=== PATIENT | female | born 1970 | race Caucasian/White ===

== ENCOUNTER → 2018-10-04 | Outpatient (CLI) | payer OTHER ==
[~2018-10-04] VITALS: Ht 172.7 cm; Wt 88.5 kg
[~2018-10-04] MED LIST: BENZTROPINE MES1 MG PO; CLONAZEPAM 1 MG1 M1 PO; DEPAKOTE ER500 MG PO; FLONASE 0.05%50 MCG NASAL; HALOPERIDOL 2 MG2 M1 PO; IBUPROFEN200 M1 PO; LIORESAL 10 MG10 MG PO; NEURONTIN600 MG PO; OXYCODONE HCL10 MG PO; RESTORIL15 MG PO; SONATA5 M1 PO; SUPER B-50 COM1 EAC1 PO; TRAZODONE 150150 M1 PO; UNICOMPLEX M TA1 TA1 PO; VENTOLIN HFA 1818 GM INH; ZANAFLEX4 MG PO
--- NOTE | ~2018-10-04 | HPC ---
[facility] [address] [address] PAIN MANAGEMENT CONSULTATION Name: DUSTIN GUZMAN Room #: REG VICKY PaulieEdouard.#: [id number] Admission: 10/04/18 Attend Phys: Philip Johnson MD Discharge: Date of : 72 Report #: [id number] THIS REPORT FOR: //name// CC: FAM unknown SCAR Johnson DATE OF SERVICE: 10/04/2018 CHIEF COMPLAINT: Severe right neck pain with headaches and myofascial spasm. HISTORY OF PRESENT ILLNESS: The patient is a pleasant 47-year-old who is here today at the request of her primary care physician Dr. Baltazar for evaluation of neck pain. She has also seen in the past Dr. Forde for surgical consultation and Dr. Kar Reveles who performed one single cervical epidural injection at C6-C7. She has had now 3-1/2 years of pain and the pain has been progressively worsening. On a daily basis, her intensity of pain score is 7 and at times 10/10. She describes it as steady, burning, shooting, aching pain that radiates both into her neck, face, the back of her head and on occasion into her right arm. Pain is generally made worse by any lifting, raising up of her arms, pulling. Even going over bumps in the car makes the pain more severe. She has currently been treated by medications primarily and she is feeling cloudy on a combination of oxycodone, muscle relaxants and gabapentin. They help some, but she does not like the feeling of medications in combination with medication she takes for a longstanding history of bipolar disorder with PTSD. We will discuss medication shortly. The patient has a bipolar illness and follows with a clinical psychiatrist in [place], [place]. MEDICATIONS: Clonazepam 1 mg t.i.d.; divalproex sodium 500 mg daily; ibuprofen 200 mg taken q. 6 hours; trazodone 150 mg 2 tablets at bedtime; vitamin B complex; multivitamins; zaleplon 5 mg at bedtime as needed; albuterol; fluticasone; gabapentin 600 mg t.i.d.; oxycodone 10 mg 1 tablet t.i.d., maximum 90 tablets per month under opioid agreement with Dr. Baltazar; tizanidine 4 mg t.i.d., this is a new medication substituting for other muscle relaxants. She also has benztropine, which she takes rarely and haloperidol, which she takes rarely. ALLERGIES: LAMICTAL. PAST MEDICAL HISTORY: Remarkable for PTSD and bipolar disorder. I do not go [address] [address] PAIN MANAGEMENT CONSULTATION Name: DUSTIN GUZMAN Room #: REG VICKY Lopez#: [id number] Admission: 10/04/18 Attend Phys: Philip Johnson MD Discharge: Date of : 72 Report #: [id number] into the stressful situation with her as she has a counselor. 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 She had two previous jaw surgeries in high school. SOCIAL HISTORY: She has been on social security disability for about 10 years due to chronic pain and bipolar illness. She continues to smoke less than half a pack a day, but this is down for her and she continues to try and taper. She has smoked for 26 years. She drinks 3-4 beers per day and finds that this is helpful for her pain, she self-medicates with this. She sleeps 10 hours a day. Impact pain score is highest for mood 7/10 and also for enjoyment of life 5/10. REVIEW OF SYSTEMS: Completed by the patient. The multipoint review is noted to describe weakness in the neck and history of night sweats due to menopause. Other than her psychiatric illness, she claims nothing else on the review. PHYSICAL EXAMINATION: GENERAL: She is a very pleasant, slightly sedated, 47-year-old. VITAL SIGNS: She is 5 feet 8 inches, 195 pounds. BMI is 29.7. Her blood pressure is 118/60, heart rate 80, respirations 16, O2 sat 97%. HEENT: Reveals pupils to be midpoint and a bit sluggish. Pupils are equal, round and reactive to light. Mucous membranes are dry. NECK: Limited in range of motion, particularly in neck extension, right lateral rotation and right lateral tilt. Pain is mostly to the right. There is localized tenderness in the upper neck overlying the lateral mass of the cervical facet joints. CHEST: Clear to auscultation. CARDIAC: Rhythm was regular with no appreciated murmur. ABDOMEN: Soft. EXTREMITIES: Examination of the upper and lower extremities reveals normal deep tendon reflexes. She is markedly weak on the right, however. She has weakness in biceps, triceps, deltoid and newspaper correspondent strength. I would reckon this is about 50% of what she can do on her left. Sensation is intact. Deep tendon reflexes in lower extremities are 2+ knees and ankles. Sensation is normal. X-rays are reviewed. At C2-C3, there is a disk bulging, but also right osteoarthritis, resulting in a moderate focal right paracentral osteophyte complex that narrows the right lateral recess, mildly. There is a mass effect on the right ventral ramus. The osteoarthritis there is judged to be moderate with moderate stenosis. At C3-C4, there is also facet osteoarthritis, mild on the left and moderate on the right. There is some right neural foraminal stenosis, but this is minimal. At C4-C5, there is a minimal posterior disk bulging. There appears to be no pathology noted C6-C7 or C5-C6. Some upper thoracic osteoarthritis and facet arthropathy. [facility] [address] [place] [address] PAIN MANAGEMENT CONSULTATION Name: DUSTIN GUZMAN Room #: REG CLI Tamanna.#: [id number] Admission: 10/04/18 Attend Phys: Philip Johnson MD Discharge: Date of : 72 Report #: [id number] IMPRESSION: Cervicalgia secondary to C2-C3 and C3-C4 facet arthropathy and probably some irritation of the exiting cervical nerve root causing some neuropathic component as well. RECOMMENDATIONS: C2-C3, C3-C4 lateral approach facet injection. This can be performed generally quite safely with fluoroscopic guidance. There are some risks which were reviewed with the patient today. I would like her off all blood thinners prior to the injection. The injection will likely also provide some deposition of local anesthetic along the exiting C2 and C3 nerve root on the right. I plan to use 0.5% bupivacaine and Decadron for the injection. The procedure was explained in some detail and the patient was allowed to ask questions. This is not intended to be a complete cure, but if she has substantial symptomatic relief, we have had many patients who have had relief in excess of 3-6 months or even longer. The procedure can be repeated as a management tool and with some hope that over time, there will be some resolution. I have discussed with her the importance of general range of motion exercises as a way of loosening up the muscles of the neck and the trapezius. Massage has also been recommended. Thank you for consultation. We will see her back within the next week or 10 days for the C2-C3 and C3-C4 facet injections. By: [id number] Philip Johnson MD /nt
[2018-10-04 14:33] VITALS: BP 118/60
--- NOTE | 2018-10-04 15:23 | NUR ---
Document wound assessment on appropriate Wound Pressure, Monitor intervention!
--- NOTE | 2018-10-04 15:23 | NUR ---
Pain Clinic Assessment: 1. History of Osteoarthritis: NECK History of Rheumatoid Arthritis: Not Applicable 2. Height: 5 ft. 8 in. 172.7 cm. Weight: 195.0 lb. oz. 88.452 kg. Patient's BMI: 29.7 3. Vital Signs: BP: 118/60 Pulse: 80 Resp: 16 Temp: 02 Sat: 97 ECG Mon: 4. Pain Intensity: 7 5. Fall Risk: Dizziness: N Needs help standing or walking: N Fallen in the last 3 months: N Fall risk comments: 6. Patient on Blood Thinner: None 7. History of Hypertension: N 8. Opioid Therapy greater than 6 weeks: Y Opiate Contract Signed: 9. Risk Assessment Tool Provided: 10. Functional Assessment Tool: 11. Recreational Drug Use: Never Drug Type: Tobacco Use: Current Every Day Smoker Tobacco Type: Cigarettes Amount or Packs/day: 10 How Many Years: 26 Alcohol Use: Yes Frequency: Daily Quant: 3-4 BEERS
== END ==
LOC: PAIN 08:28
DX: M12.88 Other specific arthropathies, not elsewhere classified, other specified site (principal); M54.2 Cervicalgia; Z79.899 Other long term (current) drug therapy

== ENCOUNTER → 2018-11-12 | Outpatient (CLI) | payer OTHER ==
[~2018-11-12] VITALS: Ht 172.7 cm; Wt 86.8 kg
--- NOTE | ~2018-11-12 | HPC ---
[facility] [place] [address] [place] [address] PAIN MANAGEMENT CONSULTATION Name: DUSTIN GUZMAN Room #: REG Saurav ..#: [id number] Admission: 11/12/18 ������������������ Attend Phys: Philip Johnson MD Discharge: ������������������ Date of : 72 Report #: [id number] THIS REPORT FOR: //name// CC: FAM unknown HARLEY Johnson DATE OF SERVICE: 11/12/2018 Followup visit for cervicalgia related to cervical spondylosis. The patient returns to pain clinic today for followup. I saw her most recently on 10/04/2018 for neck pain. It was felt that her pain was likely due to cervical spondylosis and facet arthropathy. At C2-C3, there is facet osteoarthritis noted on the right of moderate degree and at C3-C4 the facet arthritis is also moderate. At both levels, there is minimal neural foraminal stenosis. She has had a single epidural injection with no improvement whatsoever performed by Dr. Reveles at the pain clinic at [facility]. I have offered her today cervical facet injections performed with biplanar fluoroscopic views for accuracy. She is anxious to proceed. PHYSICAL EXAMINATION: She is pleasant 47-year-old. Blood pressure 108/57, heart rate 78. Examination of the neck reveals tenderness along the right neck overlying the lateral mass of the cervical facet joints. She has pain with flexion and extension primarily with right lateral rotation and lateral tilt. There is no pain noted today on the left. IMPRESSION: Cervical facet arthropathy C2-C3, C3-C4 by x-ray. PROCEDURE: C2-C3, C3-C4 facet injections under fluoroscopic guidance. PROCEDURE: She was taken to fluoroscopic suite for the procedure. She was placed prone. The skin was prepped with ChloraPrep. Skin was anesthetized first on the C2-C3 region and using biplanar fluoroscopic views, I carefully advanced the needle into the lateral aspect of the facet joint. We injected 0.25 mL of Omnipaque and demonstrated extravascular, pericapsular position of the needle and dye. I then repositioned the needle slightly more medial and then slight arthrogram was obtained. I then injected a total of 1 mL of 0.5% bupivacaine which included 20 mg of triamcinolone. She tolerated the procedure well. The skin was then anesthetized overlying the C3-C4 facet joint and using similar biplanar views, I advanced the needle into the joint space and capsule. An arthrogram was not obtained, but we did inject through the capsule and injected a total of 1 mL of solution containing 0.5% bupivacaine again with [address] [address] PAIN MANAGEMENT CONSULTATION Name: DUSTIN GUZMAN Room #: REG VICKY Lopez#: [id number] Admission: 11/12/18 ������������������ Attend Phys: Philip Johnson MD Discharge: ������������������ Date of : 72 Report #: [id number] mg of triamcinolone. She tolerated the procedure well. Pain was reduced by 50% in recovery room and followup visit planned in a month or two. ��������������������������������������������� ���������������������������������������� By: ��������������������������������������������� [id number] Philip Johnson MD /nt
[2018-11-12 11:54] VITALS: BP 108/57
--- NOTE | 2018-11-12 12:20 | NUR ---
Pain Clinic Assessment: 1. History of Osteoarthritis: NECK History of Rheumatoid Arthritis: Not Applicable 2. Height: 5 ft. 8 in. 172.7 cm. Weight: 191.4 lb. oz. 86.819 kg. Patient's BMI: 29.1 3. Vital Signs: BP: 108/57 Pulse: 78 Resp: 14 Temp: 02 Sat: 98 ECG Mon: 4. Pain Intensity: 4 5. Fall Risk: Dizziness: N Needs help standing or walking: N Fallen in the last 3 months: N Fall risk comments: 6. Patient on Blood Thinner: None 7. History of Hypertension: N 8. Opioid Therapy greater than 6 weeks: Y Opiate Contract Signed: 9. Risk Assessment Tool Provided: 10. Functional Assessment Tool: 11. Recreational Drug Use: Never Drug Type: Tobacco Use: Current Every Day Smoker Tobacco Type: Amount or Packs/day: How Many Years: Alcohol Use: Yes Frequency: Quant:
== END | disposition home or self-care (01) ==
LOC: PAIN 07:03
DX: M47.812 Spondylosis without myelopathy or radiculopathy, cervical region (principal); M48.02 Spinal stenosis, cervical region; G89.29 Other chronic pain; F17.210 Nicotine dependence, cigarettes, uncomplicated; Z79.891 Long term (current) use of opiate analgesic; Z88.8 Allergy status to other drugs, medicaments and biological substances; Z79.899 Other long term (current) drug therapy; Z98.890 Other specified postprocedural states